=== PATIENT | female | born 1950 | race African-American/Black ===

== ENCOUNTER 2018-06-26 09:41 | Day surgery (SDC) | payer OTHER ==
[2018-06-20 14:58] VITALS: BMI 28.6
[2018-06-26 10:30] VITALS: TEMP 98.2
[2018-06-26] MEDS ORDERED: PROPOFOL 20 ML ONE ×2 (11:18)
[2018-06-26] MEDS ORDERED: LIDOCAINE HCL/PF 2% SDV 5ML VIAL ONE (11:18)
[2018-06-26 12:27] VITALS: BP 115/62; PULSE 66
--- NOTE | 2018-06-28 12:45 | PATH ---
Surgical Pathology Report Patient Name: LUZ GRIFFIN [facility]. Rec. #: [id number] /Age/Gender: 1950 (Age: 68) / F Account: [id number] Location: [facility] Taken: 06/26/2018 Received: 06/26/2018 Reported: 06/28/2018 Physicians: Sruthi Horn M.D. Specimen(s) Received A: BX SCOND PORTION DUODENUM B: BX GASTRIC ANTRUM C: BX GE JUNCTION Clinical History Abdominal pain Postoperative diagnosis: Gastritis Final Diagnosis A. DUODENUM, SECOND PORTION, BIOPSY: DUODENAL MUCOSA WITH NO PATHOLOGIC CHANGES. NO HISTOLOGIC EVIDENCE OF GLUTEN SENSITIVE ENTEROPATHY (CELIAC SPRUE) IDENTIFIED. B. STOMACH, ANTRUM, BIOPSY: GASTRIC ANTRAL MUCOSA WITH NO PATHOLOGIC CHANGES. IMMUNOSTAIN FOR H. PYLORI IS NEGATIVE. C. GE JUNCTION, BIOPSY: SQUAMOUS AND GLANDULAR MUCOSA WITH CHRONIC INFLAMMATION. NO INTESTINAL METAPLASIA IDENTIFIED (NO ELKINS'S IDENTIFIED). Electronically Signed Nikko Woodard M.D. Gross Description A. Received in formalin, labeled "biopsy second portion of duodenum" is a gudino, irregular portion of soft tissue measuring 0.3 cm. in greatest dimension. The specimen is submitted in toto in one cassette. B. Received in formalin, labeled "biopsy gastric antrum" is a gudino, irregular portion of soft tissue measuring 0.4 cm. in greatest dimension. The specimen is submitted in toto in one cassette. C. Received in formalin, labeled "biopsy GE junction" is a gudino, irregular portion of soft tissue measuring 0.4 cm. in greatest dimension. The specimen is submitted in toto in one cassette. 06/27/2018 [facility]06/27/2018
== END 2018-06-26 12:30 | disposition home or self-care (01) ==
LOC: FASU-ENDO 09:41
PROVIDERS: ATTEND Internal Medicine Gastroenterology
PROC: 0DB68ZX Excision of Stomach, Via Natural or Artificial Opening Endoscopic, Diagnostic (ICD-10-PCS; 2018-06-26)
PROC: 0DB98ZX Excision of Duodenum, Via Natural or Artificial Opening Endoscopic, Diagnostic (ICD-10-PCS; principal; 2018-06-26 11:37)
DX: K92.1 Melena (principal); K31.89 Other diseases of stomach and duodenum
CPT/HCPCS: 88305-TC; 88342-TC

== ENCOUNTER 2019-11-24 12:14 | Observation (INO) | payer OTHER ==
[2019-11-24 12:20] VITALS: BMI 31.8
--- NOTE | 2019-11-24 12:22 | PDOC ---
Rapid Medical Evaluation Time Seen by Provider: 11/24/19 12:16 Medical Evaluation: Allergies Allergy/AdvReac Type Severity Reaction Status Date / Time No Known Drug Allergies Allergy Verified 11/24/19 12:16 11/24/19 12:17 Pt presents for L arm numbness and palpitations for this weekend. She states the problem has been going on for over a month but was worse this weekend. Called Dr. Briones and was told to come to the ER for evaluation. Admits to shortness of breath. Denies chest pain. Exam: RRR, S1S2 Present, No respiratory distress, breathing comfortably ORA Orders: labs, EKG, CXR Pt to proceed to the ER for further evaluation Discharge Disposition - Diagnosis Palpitations - Referrals - Patient Instructions - Post Discharge Activity
--- NOTE | 2019-11-24 13:42 | PDOC ---
History of Present Illness - General Chief Complaint: Palpitations Stated Complaint: LT ARM NUMBNESS Time Seen by Provider: 11/24/19 12:16 History Source: Patient Exam Limitations: No Limitations - History of Present Illness Initial Comments: 69F with hx/o HTN, hypothyroidism, and hysterectomy presents to the ED with intermittent left sided numbness and weakness. This has been present since April of this year. Her sister had a stroke last year and she came into the ED because she was concerned of having a stroke herself. She denied headaches, syncope, chest pain, or slurred speech. Reports SOB with exertion, palpitations, and lightheadedness. HPI PMH: as in HPI SH: hysterectomy Meds: Allergies: NKDA Tob/Etoh/Rec drugs: negative x3 PCP: Dr. Anali OCONNOR GENERAL/CONSTITUTIONAL: No fever or chills. No weakness. HEENT: No change in vision. No ear pain or discharge. No sore throat. CARDIOVASCULAR: No chest pain, +shortness of breath RESPIRATORY: No cough, wheezing, or hemoptysis. GASTROINTESTINAL: No nausea, vomiting, diarrhea or constipation. GENITOURINARY: No dysuria, frequency, or change in urination. MUSCULOSKELETAL: No joint or muscle swelling or pain. No neck or back pain. SKIN: No rash NEUROLOGIC: No headache, vertigo, loss of consciousness, +change in strength/sensation. ENDOCRINE: No increased thirst. No abnormal weight change HEMATOLOGIC/LYMPHATIC: No anemia, easy bleeding, or history of blood clots. ALLERGIC/IMMUNOLOGIC: No hives or skin allergy. PE GENERAL: Awake, alert, and fully oriented, in no acute distress HEAD: No signs of trauma, normocephalic, atraumatic EYES: PERRLA, EOMI, sclera anicteric, conjunctiva clear ENT: Auricles normal inspection, hearing grossly normal, nares patent, oropharynx clear without exudates. Moist mucosa NECK: Normal ROM, supple, no lymphadenopathy, JVD, or masses HEART: Regular rate and rhythm, normal S1 and S2, no murmurs, rubs or gallops, peripheral pulses normal and equal bilaterally. LUNGS: No distress, speaks full sentences, clear to auscultation bilaterally ABDOMEN: Soft, nontender, normoactive bowel sounds. No guarding, no rebound. No masses EXTREMITIES: Normal inspection, Normal range of motion. +1 pitting edema. No clubbing or cyanosis. NEUROLOGICAL: CNII-XII grossly intact. Normal speech, normal gait, no focal sensorimotor deficits SKIN: Warm, Dry, normal turgor, no rashes or lesions noted Assessment and Plan 1. R/o ACS 2. R/o stroke 3. TIA Desmond Garcia, PGY1 Emergency Medicine 11/24/19 17:23 Past History - Medical History Allergies/Adverse Reactions: Allergies Allergy/AdvReac Type Severity Reaction Status Date / Time No Known Drug Allergies Allergy Verified 11/24/19 12:16 Home Medications: Ambulatory Orders Levothyroxine [Synthroid -] 150 mcg PO DAILY 02/12/12 Losartan Potassium [Cozaar] 100 mg PO DAILY 06/20/18 Mirabegron [Myrbetriq] 25 mg PO HS 06/20/18 Simvastatin [Zocor -] 40 mg PO DAILY 06/20/18 Zolpidem Tartrate [Ambien] 5 mg PO HS PRN 06/20/18 Anemia: No Asthma: No Cancer: No Cardiac Disorders: No CVA: No COPD: No CHF: No Dementia: No Diabetes: No GI Disorders: No Disorders: No HTN: Yes Hypercholesterolemia: Yes Liver Disease: No Seizures: No Thyroid Disease: Yes (HYPO) - Surgical History Abdominal Surgery: No Appendectomy: No Cardiac Surgery: No Cholecystectomy: No Lung Surgery: No Neurologic Surgery: No Orthopedic Surgery: Yes (R RTC REPAIR) - Immunization History Immunization Up to Date: Yes - Psycho-Social/Smoking History Smoking Status: No Smoking History: Never smoked Have you smoked in the past 12 months: No Number of Cigarettes Smoked Daily: 0 - Substance Abuse Hx (Audit-C & DAST Scrn) How often the patient has a drink containing alcohol: Never Score: In Men: 4 or > Positive; In Women: 3 or > Positive: 0 Screen Result (Pos requires Nsg. Audit-10AR): Negative In the last yr the pt used illegal drug/Rx for NonMed reason: No Score: Yes response is considered Positive: 0 Screen Result (Positive result requires Nsg. DAST-10): Negative *Physical Exam - Vital Signs Last Vital Signs Temp Pulse Resp BP Pulse Ox 98.4 F 84 20 139/87 99 11/24/19 12:17 11/24/19 12:17 11/24/19 12:17 11/24/19 12:17 11/24/19 12:17 Heart Score/ECG Review - History History: Moderately suspicious - Electrocardiogram EKG: Non specific repolarization disturbance - Age Age: >/= 65 - Risk Factors Risk Factors Heart Score: Yes Hx Hypercholesterolemia, Yes Hx Hypertension, Yes Hx Obesity Based on the list above the patient has:: >/=3 risk factors or Hx atherosclerotic disease - Troponin Troponin: </= normal limit - Score Heart Score - Total: 6 - ECG Intrepretation Rhythm: Regular Rhythm - Annawan Annawan: Normal - P and [place] Prominent R with upright T in V1 (true posterior TX): No Delta Wave(s) Present: No WPW: No - QRS Poor R Wave Progression: No Q Wave Present: Yes - ST and T Early Repolarization: No Non Specific ST-T Wave changes: Yes Flattened T Waves: Yes Prolonged Q-T Interval: No - ECG Impressions Normal ECG: No Non-specific ST Elevation: Yes Acute Myocardial Infarction: Anterior Bradycardia: No Tachycardia: Sinus Torsades sathya Pointes: No WPW: No ED Treatment Course - LABORATORY CBC & Chemistry Diagram: 11/24/19 14:00 11/24/19 14:00 Medical Decision Making - Medical Decision Making 69F with hx/o HTN, hypothyroidism, HLD, obesity, and hysterectomy presents to the ED with intermittent left sided numbness and weakness since April. She Reports SOB with exertion, palpitations, and lightheadedness. On exam, she had LE pitting edema bilaterally. Neuro exam intact. Differential includes but not limited to ACS, CHF, CVA/TIA. CT head noncontrast to r/o CVA. CT was negative. CBC, CMP, and TSH within normal limits. Troponin negative. EKG demonstrates T wave inversion in V1 and V2, and flattened T wave in V3. CXR negative. Heart Score 6. Patient will be admitted to tele observation for further workup. Discharge - Discharge Information Problems reviewed: Yes Clinical Impression/Diagnosis: Palpitations, Abnormal EKG Condition: Stable - Admission Yes - Follow up/Referral Referrals: David Cornelius MD [Primary Care Provider] - - Patient Discharge Instructions - Post Discharge Activity
[2019-11-24 14:37] LABS: BASO % 1.4 % (0-2.0); EOS % 0.7 % (0-4.5); HEMATOCRIT 37.4 % (32.4-45.2); HEMOGLOBIN 12.4 GM/dL (10.7-15.3); LYMPH % 36.8 % (8-40); MCH 29.9 pg (25.7-33.7); MCHC 33.2 g/dl (32.0-36.0); MEAN CELL VOLUME 89.9 fl (80-96); MEAN PLT VOLUME 8.3 fl (7.5-11.1); MONO % 7.8 % (3.8-10.2); NEUT % 53.3 % (42.8-82.8); PLATELET COUNT 202 K/MM3 (134-434); RBC 4.16 M/mm3 (3.60-5.2); RDW 13.7 % (11.6-15.6); WHITE BLOOD COUNT 3.3 K/mm3 (4.0-10.0)
[2019-11-24 14:45] LABS: INR 0.95 (0.83-1.09); PROTHROMBIN TIME (PATIENT) 11.2 SEC (9.7-13.0)
[2019-11-24 15:02] LABS: ALBUMIN 3.8 g/dl (3.4-5.0); ALK PHOS 79 U/L (45-117); ANION GAP 7 MMOL/L (8-16); BILIRUBIN,TOTAL 0.3 mg/dL (0.2-1); BLOOD UREA NITROGEN 17.1 mg/dL (7-18); CALCIUM 9.5 mg/dL (8.5-10.1); CHLORIDE 107 mmol/L (98-107); CO2 26 mmol/L (21-32); GLUCOSE,RANDOM 84 mg/dL (74-106); MAGNESIUM 2.5 mg/dL (1.8-2.4); POTASSIUM 4.5 mmol/L (3.5-5.1); SGOT/AST 24 U/L (15-37); SGPT/ALT 36 U/L (13-61); SODIUM 141 mmol/L (136-145); TOT PROT 8.2 g/dl (6.4-8.2)
--- NOTE | 2019-11-24 15:05 | PDOC ---
Documentation entered by Ines Kelly SCRIBE, acting as scribe for Sim Berkowitz MD. Sim Berkowitz MD: This documentation has been prepared by the Robin orellana Ana, SCRIBE, under my direction and personally reviewed by me in its entirety. I confirm that the documentation accurately reflects all work, treatment, procedures, and medical decision making performed by me. Attending Attestation - Resident Resident Name: Desmond Garcia - ED Attending Attestation I have performed the following: I have examined & evaluated the patient, The case was reviewed & discussed with the resident, I agree w/resident's findings & plan, Exceptions are as noted - HPI HPI: 11/24/19 13:57 Patient is a 69 year old female with a significant past medical history of hypertension, hypothyroidism, and hysterectomy, who presents to the ED with numbness and weakness on the left side of her body x8 months (April 2019). Patient stated she has been feeling these symptoms on and off. Patient disclosed that she is concerned about having a stroke because her sister had one last year which prompted her ED arrival. Pt also complains of palpitations and occasional SOB. States that she gets SOB when talking and walking. Patient endorses: lightheadedness, SOB upon exertion, and palpitations. Patient denies: syncope, headaches, slurred speech, chest pain, or any other related symptoms. Allergies: NKDA - Physicial Exam PE: 11/24/19 13:58 See resident exam. - Medical Decision Making 11/24/19 15:15 69 F with L sided numbness/weakness, now resolved. Also palpitations with SOB and OSORIO. EKG without evidence of arrhythmia but new TWI in V2-V3 since 2016. Pt denies CP. Pt with mild pitting edema in BLE, suspicious for volume overload. - Labs, trop - CXR Discharge - Discharge Information Problems reviewed: Yes Clinical Impression/Diagnosis: Palpitations, Abnormal EKG, Volume overload Condition: Stable Disposition: HOME - Follow up/Referral - Patient Discharge Instructions - Post Discharge Activity
--- NOTE | 2019-11-24 16:08 | EKG ---
Test Reason : Blood Pressure : / mmHG Vent. Rate : 078 BPM Atrial Rate : 078 BPM P-R Int : 176 ms QRS Dur : 090 ms QT Int : 360 ms P-R-T Axes : 006 021 002 degrees QTc Int : 410 ms NORMAL SINUS RHYTHM NONSPECIFIC ST AND T WAVE ABNORMALITY ABNORMAL ECG WHEN COMPARED WITH ECG OF 26-APR-2015 16:00, T WAVE VARIATION Confirmed by DOMINIQUE CAVANAUGH MD ([id number]) on 11/24/2019 4:07:40 PM Referred By: Confirmed By:DOMINIQUE CAVANAUGH MD
--- NOTE | 2019-11-24 20:46 | PN ---
Teaching Attending Note ATTENDING PHYSICIAN STATEMENT I saw and evaluated the patient. I reviewed the resident's note and discussed the case with the resident. I agree with the resident's findings and plan as documented. SUBJECTIVE: 69 years old F with PMH of HTN, hypothyroidism presented to hospital with intermittent palpitations, chest discomfort and shortness of breath. She c She also c/o left arm and leg weakness and numbness which is comes and goes for many months. She called her PMD who recommended to come to the hospital. She denies chest pain, nausea,vomiting, fever, urinary complaints, diarrhea, constipation OBJECTIVE: Last Vital Signs Temp Pulse Resp BP Pulse Ox 98.4 F 79 18 98/58 L 99 11/24/19 12:17 11/24/19 18:27 11/24/19 18:27 11/24/19 18:27 11/24/19 12:17 GENERAL: ] in acutye distress HEAD: No signs of trauma, normocephalic, atraumatic EYES: PERRLA, EOMI, sclera anicteric, conjunctiva clear ENT: Auricles normal inspection, hearing grossly normal, nares patent, oropharynx clear without exudates. Moist mucosa NECK: Normal ROM, supple, no lymphadenopathy, JVD, or masses HEART: Regular rate and rhythm, normal S1 and S2, no murmurs, rubs or gallops, peripheral pulses normal and equal bilaterally. LUNGS: No distress, speaks full sentences, clear to auscultation bilaterally ABDOMEN: Soft, nontender, normoactive bowel sounds. No guarding, no rebound. No masses EXTREMITIES: Normal inspection, Normal range of motion, [peripheral pulses palpable, B/L pitting edema 1+ NEUROLOGICAL: CNII-XII grossly intact. Normal speech, normal gait, no focal sensorimotor deficits SKIN: Warm, Dry, normal turgor, no rashes or lesions noted ASSESSMENT AND PLAN: Exertional SOb, palpitations r/o CHF R/o ACS HTn controlled mild rhabdomyolysis Observation to tele tele monitoring check B12, TSH, mg,phos, cpk, Hba1c, lipid panel, BNP, troponin ECHO HTN- hold home meds as BP lower side left sided intermittent numbness/weakness due to ? nutritional deficiency ? Thyroid, no focal weakness or numbness on physical exam resume home dose syntroid DVT ppx
[2019-11-25 02:18] LABS: N-TERMINAL BNP 28.1 pg/ml (5-125)
[2019-11-25] MEDS ORDERED: SODIUM CHLORIDE 1,000 ML IV SCH (03:45)
--- NOTE | 2019-11-25 04:30 | HP ---
CHIEF COMPLAINT: Shortness of breath on exertion with palpitations, lightheadedness on standing, and leg swelling left greater than right. PCP: Dr. Briones HISTORY OF PRESENT ILLNESS: 69 year old female patient with past medical history that includes HTN, Hypothyroidism, HLD, Obesity who presented to the ED with shortness of breath on exertion with intermittent palpitations for over a month, lightheadedness on standing, and leg swelling with the left leg bigger than the right per the patient. The patient reports that she can now only walk maybe a block and a half before she has to stop and rest. She sleeps with her head propped up, but does not specify a number of pillows. For her leg swelling, her primary care physician prescribed for her a water pill, which has helped. She also has intermittent numbness and weakness in her left arm and leg that come and go but happen at least once daily. ER course was notable for: (1) ECG (2) NS 1 L (3) Recent Travel: Was in [place] PAST MEDICAL HISTORY: HTN, Hypothyroidism, HLD, Obesity PAST SURGICAL HISTORY: Hyterectomy Social History: Smoking: denies Alcohol: 1 glass of wine per day Drugs: denies Allergies No Known Drug Allergies Allergy (Verified 11/24/19 12:16) HOME MEDICATIONS: Home Medications Medication Instructions Recorded Levothyroxine [Synthroid -] 150 mcg PO DAILY 02/12/12 Losartan Potassium [Cozaar] 100 mg PO DAILY 06/20/18 Mirabegron [Myrbetriq] 25 mg PO HS 06/20/18 Simvastatin [Zocor -] 40 mg PO DAILY 06/20/18 Zolpidem Tartrate [Ambien] 5 mg PO HS PRN 06/20/18 REVIEW OF SYSTEMS CONSTITUTIONAL: Absent: fever, chills, CARDIOVASCULAR: lightheadedness on standing, palpitations, peripheral edema Absent: chest pain, syncope, irregular heart rate, RESPIRATORY: shortness of breath on exertion Absent: GASTROINTESTINAL: diarrhea, constipation Absent: GENITOURINARY: Absent: dysuria NEUROLOGIC: Absent: headache, slurred speech PHYSICAL EXAMINATION Vital Signs - 24 hr 11/24/19 11/24/19 11/24/19 12:17 18:27 20:51 Temperature 98.4 F 97.9 F Pulse Rate 84 Pulse Rate [ 79 72 Apical] Respiratory 20 18 19 Rate Blood Pressure 139/87 Blood Pressure 98/58 L 131/89 [Right Arm] O2 Sat by Pulse 99 99 Oximetry (%) 11/24/19 11/25/19 22:00 02:00 Temperature 98 F 98.3 F Pulse Rate 71 74 Pulse Rate [ Apical] Respiratory 19 19 Rate Blood Pressure 153/95 155/93 Blood Pressure [Right Arm] O2 Sat by Pulse 97 99 Oximetry (%) GENERAL: Awake, alert, and fully oriented, in no acute distress. HEAD: Normal with no signs of trauma. EYES: Pupils equal, round and reactive to light, extraocular movements intact. No lid lag. EARS, NOSE, THROAT: Ears normal, nares patent, oropharynx clear without exudates. Moist mucous membranes. NECK: Normal range of motion, supple without lymphadenopathy, or masses. Mild JVD. LUNGS: Decreased breath sounds with mild crackles in bases. No accessory muscle use. HEART: Regular rate and rhythm, normal S1 and S2 without murmur, rub or gallop. ABDOMEN: Soft, nontender, not distended, normoactive bowel sounds, no guarding, no rebound, no masses. MUSCULOSKELETAL: Normal range of motion at all joints. No bony deformities or tenderness. UPPER EXTREMITIES: 2+ pulses, warm, well-perfused. No cyanosis. No clubbing. No peripheral edema. LOWER EXTREMITIES: 2+ pulses, warm, well-perfused. No calf tenderness. Bilateral leg swelling with right leg equal in size to left leg. NEUROLOGICAL: Cranial nerves II-XII intact. Normal speech. Normal gait. Muscle strength 5/5 bilaterally upper and lower extremities. No numbness in all dermatomes in upper and lower extremities bilaterally. PSYCHIATRIC: Cooperative. Good eye contact. Appropriate mood and affect. SKIN: Warm, dry, normal turgor, no rashes or lesions noted, normal capillary refill. Laboratory Results - last 24 hr 11/24/19 11/24/19 11/24/19 14:00 14:00 14:00 WBC 3.3 L RBC 4.16 Hgb 12.4 Hct 37.4 D MCV 89.9 MCH 29.9 MCHC 33.2 RDW 13.7 Plt Count 202 D MPV 8.3 Absolute Neuts (auto) 1.8 Neutrophils % 53.3 D Lymphocytes % 36.8 D Monocytes % 7.8 Eosinophils % 0.7 D Basophils % 1.4 Nucleated RBC % 0 PT with INR 11.20 INR 0.95 Sodium 141 Potassium 4.5 Chloride 107 Carbon Dioxide 26 Anion Gap 7 L BUN 17.1 Creatinine 1.0 Est GFR (CKD-EPI)AfAm 67.04 Est GFR (CKD-EPI)NonAf 57.84 Random Glucose 84 Calcium 9.5 Magnesium 2.5 H Total Bilirubin 0.3 AST 24 ALT 36 Alkaline Phosphatase 79 Creatine Kinase 618 H Creatine Kinase Index 1.1 CK-MB (CK-2) 6.8 H Troponin I < 0.02 B-Natriuretic Peptide Total Protein 8.2 Albumin 3.8 Vitamin B12 TSH 11/24/19 11/25/19 14:00 00:05 WBC RBC Hgb Hct MCV MCH MCHC RDW Plt Count MPV Absolute Neuts (auto) Neutrophils % Lymphocytes % Monocytes % Eosinophils % Basophils % Nucleated RBC % PT with INR INR Sodium Potassium Chloride Carbon Dioxide Anion Gap BUN Creatinine Est GFR (CKD-EPI)AfAm Est GFR (CKD-EPI)NonAf Random Glucose Calcium Magnesium Total Bilirubin AST ALT Alkaline Phosphatase Creatine Kinase Creatine Kinase Index CK-MB (CK-2) Troponin I < 0.02 B-Natriuretic Peptide 28.1 Total Protein Albumin Vitamin B12 624 TSH 2.38 ASSESSMENT/PLAN: 69 year old female patient with past medical history that includes HTN, Hypothyroidism, HLD, Obesity who presented to the ED with shortness of breath on exertion with intermittent palpitations for over a month, lightheadedness on standing, and leg swelling with the left leg bigger than the right per the patient. 1. possible new onset CHF exacerbation - leg swelling - shortness of breath on exertion - ECHO - B12, TSH, mg, phos, cpk, Hba1c, lipid panel, BNP, troponin 2. HTN - holding HTN meds as blood pressure is low 3. Hypothyroidism - Levothyroxine # FEN - NS at 83, Monitoring Electrolytes, NPO DVT PPx - Lovenox SQ Family Medical History Family History: Denies Visit type - Medication Review Med list reviewed for High Risk Meds patients 65 and older: Yes - Emergency Visit Emergency Visit: Yes ED Registration Date: 11/24/19 Care time: The patient presented to the Emergency Department on the above date and was hospitalized for further evaluation of their emergent condition. - New Patient This patient is new to me today: Yes Date on this admission: 11/25/19 - Critical Care Critical Care patient: No ATTENDING PHYSICIAN STATEMENT I saw and evaluated the patient. I reviewed the resident's note and discussed the case with the resident. I agree with the resident's findings and plan as documented. SUBJECTIVE: OBJECTIVE: ASSESSMENT AND PLAN:
[2019-11-25 06:45] LABS: HEMATOCRIT 36.9 % (32.4-45.2); HEMOGLOBIN 12.2 GM/dL (10.7-15.3); MCH 29.4 pg (25.7-33.7); MCHC 32.9 g/dl (32.0-36.0); MEAN CELL VOLUME 89.3 fl (80-96); MEAN PLT VOLUME 8.2 fl (7.5-11.1); PLATELET COUNT 195 K/MM3 (134-434); RBC 4.14 M/mm3 (3.60-5.2); RDW 13.9 % (11.6-15.6); WHITE BLOOD COUNT 3.4 K/mm3 (4.0-10.0)
[2019-11-25] MEDS ORDERED: LEVOTHYROXINE NA 50 MCG TABLET (FP) PO SCH (07:00)
[2019-11-25 07:40] LABS: BLOOD UREA NITROGEN 13.4 mg/dL (7-18); CALCIUM 8.8 mg/dL (8.5-10.1); CREATININE 0.8 mg/dL (0.55-1.3); MAGNESIUM 2.2 mg/dL (1.8-2.4); PHOSPHOROUS 3.6 mg/dL (2.5-4.9); POTASSIUM 4.1 mmol/L (3.5-5.1)
[2019-11-25] MEDS ORDERED: PATIENT'S OWN MEDICATION (NON-FORMULARY) (Losartan Potassium [Cozaar] 100 MG) PO SCH (10:00)
[2019-11-25] MEDS ORDERED: LEVOTHYROXINE PO SCH (10:00)
[2019-11-25] MEDS ORDERED: ENOXAPARIN NA (PORCINE) 40 MG/0.4 ML DISP.SYRIN SQ SCH (10:00)
[2019-11-25] MEDS ORDERED: LOSARTAN POTASSIUM 50 MG TABLET (FP) PO SCH (10:00)
--- NOTE | 2019-11-25 14:30 | PN ---
Physical Exam: SUBJECTIVE: Patient seen and examined at bedside. Patient reports improvement of shortness of breath. Patient has no other concerns or complaints at this time. OBJECTIVE: Vital Signs Period Temp Pulse Resp BP Sys/Coulter Pulse Ox Last 24 Hr 97.8 F-98.6 F 66-81 15-24 98-161/58-95 96-99 GENERAL: AAOx3, in no acute distress HEENT: NCAT, PERRLA, EOMI, sclera anicteric, conjunctiva clear, oropharynx clear w/o exudates. MMM. NECK: Normal ROM, supple, no lymphadenopathy, JVD, or masses LUNGS: CTABL no wheezes/ rhonchi/ rales. No distress, speaks in full sentences. No increased work of breathing. HEART: RRR, normal S1 S2, no M/R/G, peripheral pulses 2+ and equal b/l ABDOMEN: Soft, NTND, + BS. No guarding or rebound. No hepatomegaly or splenomegaly. MSK: ROM WNL EXTREMITIES: Normal inspection. No peripheral edema. No clubbing or cyanosis. NEUROLOGICAL: CN II-XII intact. Normal speech, normal gait, no focal sensorimotor deficits. NIH Stroke Scale: 0 SKIN: Warm, Dry, normal turgor, no rashes or lesions noted Laboratory Results - last 24 hr 11/24/19 11/24/19 11/24/19 14:00 14:00 14:00 WBC 3.3 L RBC 4.16 Hgb 12.4 Hct 37.4 D MCV 89.9 MCH 29.9 MCHC 33.2 RDW 13.7 Plt Count 202 D MPV 8.3 Absolute Neuts (auto) 1.8 Neutrophils % 53.3 D Lymphocytes % 36.8 D Monocytes % 7.8 Eosinophils % 0.7 D Basophils % 1.4 Nucleated RBC % 0 PT with INR 11.20 INR 0.95 Sodium 141 Potassium 4.5 Chloride 107 Carbon Dioxide 26 Anion Gap 7 L BUN 17.1 Creatinine 1.0 Est GFR (CKD-EPI)AfAm 67.04 Est GFR (CKD-EPI)NonAf 57.84 Random Glucose 84 Calcium 9.5 Phosphorus Magnesium 2.5 H Total Bilirubin 0.3 AST 24 ALT 36 Alkaline Phosphatase 79 Creatine Kinase 618 H Creatine Kinase Index 1.1 CK-MB (CK-2) 6.8 H Troponin I < 0.02 B-Natriuretic Peptide Total Protein 8.2 Albumin 3.8 Vitamin B12 TSH COVID-19 (SERINA) 11/24/19 11/24/19 11/25/19 14:00 14:20 00:05 WBC RBC Hgb Hct MCV MCH MCHC RDW Plt Count MPV Absolute Neuts (auto) Neutrophils % Lymphocytes % Monocytes % Eosinophils % Basophils % Nucleated RBC % PT with INR INR Sodium Potassium Chloride Carbon Dioxide Anion Gap BUN Creatinine Est GFR (CKD-EPI)AfAm Est GFR (CKD-EPI)NonAf Random Glucose Calcium Phosphorus Magnesium Total Bilirubin AST ALT Alkaline Phosphatase Creatine Kinase Creatine Kinase Index CK-MB (CK-2) Troponin I < 0.02 B-Natriuretic Peptide 28.1 Total Protein Albumin Vitamin B12 624 TSH 2.38 COVID-19 (SERINA) Not detected 11/25/19 11/25/19 11/25/19 05:30 05:30 06:00 WBC 3.4 L RBC 4.14 Hgb 12.2 Hct 36.9 MCV 89.3 MCH 29.4 MCHC 32.9 RDW 13.9 Plt Count 195 MPV 8.2 Absolute Neuts (auto) Neutrophils % Lymphocytes % Monocytes % Eosinophils % Basophils % Nucleated RBC % PT with INR INR Sodium 140 Potassium 4.1 Chloride 106 Carbon Dioxide 26 Anion Gap 8 BUN 13.4 Creatinine 0.8 Est GFR (CKD-EPI)AfAm 87.80 Est GFR (CKD-EPI)NonAf 75.75 Random Glucose 76 Calcium 8.8 Phosphorus 3.6 Magnesium 2.2 Total Bilirubin AST ALT Alkaline Phosphatase Creatine Kinase Creatine Kinase Index CK-MB (CK-2) Troponin I < 0.02 B-Natriuretic Peptide Total Protein Albumin Vitamin B12 TSH COVID-19 (SERINA) Active Medications Generic Name Dose Route Start Last Admin Trade Name Freq PRN Reason Stop Dose Admin Enoxaparin Sodium 40 mg 11/25/19 10:00 11/25/19 09:39 Lovenox - SQ 40 mg DAILY DREA Administration Sodium Chloride 1,000 mls @ 83 mls/hr 11/25/19 03:45 11/25/19 04:30 Normal Saline - IV 83 mls/hr ASDIR DREA Administration Levothyroxine Sodium 150 mcg 11/25/19 07:00 11/25/19 06:27 Synthroid - PO 150 mcg DAILY@0700 DREA Administration Losartan Potassium 100 mg 11/25/19 10:00 11/25/19 09:39 Cozaar - PO 100 mg DAILY DREA Administration Non-Formulary Medication 25 mg 11/25/19 22:00 Mirabegron [Myrbetriq] PO HS DREA Non-Formulary Medication 40 mg 11/26/19 10:00 Simvastatin PO DAILY DREA ASSESSMENT/PLAN: 69 year old female patient with past medical history that includes HTN, Hypothyroidism, HLD, Obesity who presented to the ED with shortness of breath on exertion with intermittent palpitations for over a month, lightheadedness on st anding. #possible new onset CHF exacerbation - ECHO done today: normal valve and ventricle function with an EF= 60% - B12, TSH, mg, phos, cpk, Hba1c, lipid panel, BNP, troponin - repeat EKG - referred to Dr. Garcia, Ms Access Database Developer, for patient to follow up with outpt. #HTN - continuing home meds as long as BP does not get too low #Hypothyroidism - Levothyroxine #FEN -Monitoring Electrolytes -NPO #DVT PPx - Lovenox SQ Visit type - Emergency Visit Emergency Visit: No - New Patient This patient is new to me today: Yes Date on this admission: 11/25/19 - Critical Care Critical Care patient: No - Discharge Referral Referred to [facility] Med P.C.: No - Medication Review Med list reviewed for High Risk Meds patients 65 and older: Yes ATTENDING PHYSICIAN STATEMENT I saw and evaluated the patient. I reviewed the resident's note and discussed the case with the resident. I agree with the resident's findings and plan as documented. SUBJECTIVE: OBJECTIVE: ASSESSMENT AND PLAN:
--- NOTE | 2019-11-25 14:35 | ECHO ---
Version: 1 Name: LUZ GRIFFIN Exam: Adult Echocardiogram Study Date: 11/25/2019, 1:27 PM Age: 69 Years MMode/2D Measurements & Calculations IVSd: 1.09 cm LVIDs: 3.1 cm LVIDd: 4.5 cm LVPWd: 1.07 cm LAV (MOD-bp): 53.0 ml ACS: 1.84 cm Ao root diam: 3.2 cm LVOT diam: 1.98 cm LA dimension: 3.3 cm Doppler Measurements & Calculations MV E max jose: 46.9 cm/sec Med E/e': 10.5 MV A max jose: 90.3 cm/sec Med Peak E' Jose: 4.5 cm/sec MV E/A: 0.52 Lat E/e': 4.6 Lat Peak E' Jose: 10.2 cm/sec Ao max P.5 mmHg MARISSA(I,D): 2.7 cm Ao mean P.7 mmHg LV V1 mean: 62.3 cm/sec Ao V2 max: 116.7 cm/sec LV V1 mean P.76 mmHg PI end-d jose: 76.0 cm/sec TR max jose: 180.1 cm/sec TR max P.1 mmHg Left Ventricle The left ventricular size, thickness and function are normal. EF 60%. Abnormal diastolic relaxation. Right Ventricle The right ventricle is normal in size and function. Atria Normal left and right atrial size and function. Mitral Valve The mitral valve is normal in structure and function. Tricuspid Valve The tricuspid valve is normal in structure and function. Trace TR, PASP 23 mmHg. Aortic Valve The aortic valve is normal in structure and function. Pulmonic Valve The pulmonic valve is normal in structure and function. Great Vessels The aortic root is normal size. Pericardium/Pleura There is no pericardial effusion. Tech Comments TDS due to body habitus. Summary Statements The left ventricular size, thickness and function are normal EF 60% Abnormal diastolic relaxation The right ventricle is normal in size and function. Normal left and right atrial size and function. The mitral valve is normal in structure and function. The tricuspid valve is normal in structure and function. Trace TR, PASP 23 mmHg The aortic valve is normal in structure and function. MD Peña Suarez 11/25/2019, 2:34 PM Ordering Physician: Altaf Desir Referring Physician: ALTAF DESIR Performed By: Tamia Wetzel
--- NOTE | 2019-11-25 16:42 | PN ---
Teaching Attending Note Name of Resident: Sterling Owens ATTENDING PHYSICIAN STATEMENT I saw and evaluated the patient. I reviewed the resident's note and discussed the case with the resident. I agree with the resident's findings and plan as documented. SUBJECTIVE: Patient is comfortable has no new symptoms. Denies having any shortness of breat h, or tingling sensation of lower extremities. Patient stated that has a hx of lower back pain due to having an accident a long time ago due to her fall. OBJECTIVE: Vital Signs Temperature 98.5 F 11/25/19 14:00 Pulse Rate 70 11/25/19 14:00 Respiratory Rate 22 H 11/25/19 14:00 Blood Pressure 153/89 11/25/19 14:00 O2 Sat by Pulse Oximetry (%) 100 11/25/19 14:00 PE:per resident's note CVS: S1S2+, No murmur Abdomen: no abdominal tenderness Ext: P+, no C/C/E Neuro: AA0x3 , NFD CBCD WBC 3.4 K/mm3 (4.0-10.0) L 11/25/19 05:30 RBC 4.14 M/mm3 (3.60-5.2) 11/25/19 05:30 Hgb 12.2 GM/dL (10.7-15.3) 11/25/19 05:30 Hct 36.9 % (32.4-45.2) 11/25/19 05:30 MCV 89.3 fl (80-96) 11/25/19 05:30 MCHC 32.9 g/dl (32.0-36.0) 11/25/19 05:30 RDW 13.9 % (11.6-15.6) 11/25/19 05:30 Plt Count 195 K/MM3 (134-434) 11/25/19 05:30 MPV 8.2 fl (7.5-11.1) 11/25/19 05:30 CMP Sodium 140 mmol/L (136-145) 11/25/19 06:00 Potassium 4.1 mmol/L (3.5-5.1) 11/25/19 06:00 Chloride 106 mmol/L (98-107) 11/25/19 06:00 Carbon Dioxide 26 mmol/L (21-32) 11/25/19 06:00 Anion Gap 8 MMOL/L (8-16) 11/25/19 06:00 BUN 13.4 mg/dL (7-18) 11/25/19 06:00 Creatinine 0.8 mg/dL (0.55-1.3) 11/25/19 06:00 Random Glucose 76 mg/dL (74-106) 11/25/19 06:00 Calcium 8.8 mg/dL (8.5-10.1) 11/25/19 06:00 Total Bilirubin 0.3 mg/dL (0.2-1) 11/24/19 14:00 AST 24 U/L (15-37) 11/24/19 14:00 ALT 36 U/L (13-61) 11/24/19 14:00 Alkaline Phosphatase 79 U/L (45-117) 11/24/19 14:00 Total Protein 8.2 g/dl (6.4-8.2) 11/24/19 14:00 Albumin 3.8 g/dl (3.4-5.0) 11/24/19 14:00 CARDIAC ENZYMES Creatine Kinase 618 U/L (26-192) H 11/24/19 14:00 Troponin I < 0.02 ng/ml (0.00-0.05) 11/25/19 05:30 Laboratory Tests 11/24/19 11/24/19 11/24/19 14:00 14:00 14:20 Potassium Phosphorus Troponin I < 0.02 Vitamin B12 TSH 2.38 COVID-19 (SERINA) Not detected 11/25/19 11/25/19 11/25/19 00:05 05:30 06:00 Potassium 4.1 Phosphorus 3.6 Troponin I < 0.02 < 0.02 Vitamin B12 624 TSH COVID-19 (SERINA) Home Medications Medication Instructions Recorded Levothyroxine [Synthroid -] 112 mcg PO DAILY 02/12/12 Losartan Potassium [Cozaar] 100 mg PO DAILY 06/20/18 Mirabegron [Myrbetriq] 25 mg PO HS 06/20/18 Simvastatin [Zocor -] 40 mg PO DAILY 06/20/18 Zolpidem Tartrate [Ambien] 5 mg PO HS PRN 06/20/18 Aspirin Coated [Ecotrin -] 81 mg PO DAILY #30 tab 11/25/19 Metoprolol Succinate [Toprol XL -] 25 mg PO DAILY #30 tab 11/25/19 Current Medications Generic Name Dose Route Start Last Admin Trade Name Nan PRN Reason Stop Dose Admin Aspirin 81 mg 11/25/19 17:00 11/25/19 17:20 Ecotrin - PO 81 mg DAILY DREA Administration Atorvastatin Calcium 20 mg 11/25/19 22:00 Lipitor - PO HS DREA Enoxaparin Sodium 40 mg 11/25/19 10:00 11/25/19 09:39 Lovenox - SQ 40 mg DAILY DREA Administration Sodium Chloride 1,000 mls @ 83 mls/hr 11/25/19 03:45 11/25/19 04:30 Normal Saline - IV 83 mls/hr ASDIR DREA Administration Levothyroxine Sodium 150 mcg 11/25/19 07:00 11/25/19 06:27 Synthroid - PO 150 mcg DAILY@0700 DREA Administration Losartan Potassium 100 mg 11/25/19 10:00 11/25/19 09:39 Cozaar - PO 100 mg DAILY DREA Administration Metoprolol Succinate 25 mg 11/25/19 18:00 Toprol Xl - PO DAILY DREA Non-Formulary Medication 25 mg 11/25/19 22:00 Mirabegron [Myrbetriq] PO HS DREA CXR: no acute pathology , large heart, prominent Knob, scoliosis with degenerative changes.Unfolded Aorta Echo; EJF 60%, abnormal diastolic relaxation. ASSESSMENT AND PLAN: This patient is a 69yof with PMHx of HTN, Hypothyroidism, HLD, Obesity who presented to the ED c/o having SOB. #Acute SOB: Improved , echo was done: with abnormal diastolic relaxation , will follow up with dietetic aide as an outpatient, w/u is negative so far. #small chronic cerebellar infarct: will add aspirin, follow up with neuro as an outpatient with dr white # Hx of fall with back pain: follow up with ortho as an outpatient # HTN: Uncontrolled will add toprol xl 25mg po daily # Hypothyroidism: continue Levothyroxine dc patient home
[2019-11-25] MEDS ORDERED: ASPIRIN COATED 81 MG TABLET.EC PO SCH (17:00)
--- NOTE | 2019-11-25 17:28 | DS ---
Physical Exam: SUBJECTIVE: Patient seen and examined at bedside. Patient reports improvement of shortness of breath. Patient has no other concerns or complaints at this time. OBJECTIVE: Vital Signs Period Temp Pulse Resp BP Sys/Coulter Pulse Ox Last 24 Hr 97.8 F-98.6 F 66-81 15-24 98-161/58-95 96-100 PHYSICAL EXAM GENERAL: AAOx3, in no acute distress HEENT: NCAT, PERRLA, EOMI, sclera anicteric, conjunctiva clear, oropharynx clear w/o exudates. MMM. NECK: Normal ROM, supple, no lymphadenopathy, JVD, or masses LUNGS: CTABL no wheezes/ rhonchi/ rales. No distress, speaks in full sentences. No increased work of breathing. HEART: RRR, normal S1 S2, no M/R/G, peripheral pulses 2+ and equal b/l ABDOMEN: Soft, NTND, + BS. No guarding or rebound. No hepatomegaly or splenomegaly. MSK: ROM WNL EXTREMITIES: Normal inspection. No peripheral edema. No clubbing or cyanosis. NEUROLOGICAL: CN II-XII intact. Normal speech, normal gait, no focal sensorimotor deficits. NIH Stroke Scale: 0 SKIN: Warm, Dry, normal turgor, no rashes or lesions noted LABS Laboratory Results - last 24 hr 11/24/19 11/25/19 11/25/19 14:20 00:05 05:30 WBC 3.4 L RBC 4.14 Hgb 12.2 Hct 36.9 MCV 89.3 MCH 29.4 MCHC 32.9 RDW 13.9 Plt Count 195 MPV 8.2 Sodium Potassium Chloride Carbon Dioxide Anion Gap BUN Creatinine Est GFR (CKD-EPI)AfAm Est GFR (CKD-EPI)NonAf Random Glucose Calcium Phosphorus Magnesium Troponin I < 0.02 B-Natriuretic Peptide 28.1 Vitamin B12 624 COVID-19 (SERINA) Not detected 11/25/19 11/25/19 05:30 06:00 WBC RBC Hgb Hct MCV MCH MCHC RDW Plt Count MPV Sodium 140 Potassium 4.1 Chloride 106 Carbon Dioxide 26 Anion Gap 8 BUN 13.4 Creatinine 0.8 Est GFR (CKD-EPI)AfAm 87.80 Est GFR (CKD-EPI)NonAf 75.75 Random Glucose 76 Calcium 8.8 Phosphorus 3.6 Magnesium 2.2 Troponin I < 0.02 B-Natriuretic Peptide Vitamin B12 COVID-19 (SERINA) HOSPITAL COURSE: 69 year old female patient with past medical history that includes HTN, Hypothyroidism, HLD, Obesity who presented to the ED with shortness of breath on exertion with intermittent palpitations for over a month, lightheadedness on standing. During her stay at the hospital the patient was worked up for a possible new onset CHF exacerbation. Echo was done which revealed normal valve and ventricle function with an EF=60. EKG was done which also revealed normal results. Patient continued her home medications for hypertension and hypothyro idism during her stay at the hospital. Patient's symptoms resolved after being admitted and she was referred to Dr. Garcia for outpatient cardiology follow-up. Lovenox SQ was given during her stay as DVT prophylaxis. Date of Admission:11/24/19 11/24/2019- CXR- Impression: No acute chest pathology. Large heart. Prominent knob. No change of an adverse nature s erika 03/13/2012. 11/24/2019-CT Head w/o contrast- No CT evidence of acute intracranial pathology. 11/25/2019-Echocardiogram- normal valve and ventricle function with EF=60 Date of Discharge: 11/25/19 Minutes to complete discharge: 36 Discharge Summary Problems reviewed: Yes Reason For Visit: SOB,PALPITATIONS,ABNORMAL ELECTROCARDIOGRAPHY Current Active Problems Abnormal EKG (Acute) Palpitations (Acute) Condition: Stable - Instructions Diet, Activity, Other Instructions: Your visit: You were admitted to the hospital for shortness of breath. You were found to have a normal heart study. You were treated with fluids with improvement of your symptoms. Medications changes: -Continue to take all other home medications as prescribed. -Added Ecotrin 81mg orally daily (it's over the counter) -Added a new blood pressure medication : Toprol XL 12.5mg orally daily (1/2 a tablet) Follow up: - Please follow-up with clinical statistics manager, Dr. Garcia in 1 week. - Visit with your Primary Care Provider, Dr. Waite in 2 weeks. -follow up with neurologist within a week Dr Todd -follow up with Orthopedic dr for your lower back within a week Additional Instructions: -You are being discharged to your home. -Please return to the Emergency Department if you experience worsening pain, fevers, chills, shortness of breath, or chest pain, or if you experience any worsening, new or concerning symptoms. Referrals: David Cornelius MD [Primary Care Provider] - 1 Week Sim Lawrence MD [Staff Physician] - 1 Week Connor Garcia MD [Staff Physician] - 1 Week Epifanio Todd MD [Staff Physician] - 1 Week Disposition: HOME - Home Medications Comprehensive Discharge Medication List: Ambulatory Orders Levothyroxine [Synthroid -] 112 mcg PO DAILY 02/12/12 Losartan Potassium [Cozaar] 100 mg PO DAILY 06/20/18 Mirabegron [Myrbetriq] 25 mg PO HS 06/20/18 Simvastatin [Zocor -] 40 mg PO DAILY 06/20/18 Zolpidem Tartrate [Ambien] 5 mg PO HS PRN 06/20/18 Aspirin Coated [Ecotrin -] 81 mg PO DAILY #30 tab 11/25/19 This patient is new to me today: Yes Date on this admission: 11/25/19 Emergency Visit: No Critical Care patient: No - Discharge Referral Referred to [facility] Med P.C.: No ATTENDING PHYSICIAN STATEMENT I saw and evaluated the patient. I reviewed the resident's note and discussed the case with the resident. I agree with the resident's findings and plan as documented. SUBJECTIVE: OBJECTIVE: ASSESSMENT AND PLAN:
[2019-11-25 17:50] VITALS: BP 142/85; PULSE 62; TEMP 98.6
[2019-11-25] MEDS ORDERED: metoPROLOL SUCCINATE 25 MG TAB.SR.24H (FP) PO SCH (18:00)
--- NOTE | 2019-11-25 20:14 | EKG ---
Test Reason : Blood Pressure : / mmHG Vent. Rate : 067 BPM Atrial Rate : 067 BPM P-R Int : 186 ms QRS Dur : 090 ms QT Int : 404 ms P-R-T Axes : 025 021 017 degrees QTc Int : 426 ms NORMAL SINUS RHYTHM T WAVE ABNORMALITY, CONSIDER ANTERIOR ISCHEMIA ABNORMAL ECG WHEN COMPARED WITH ECG OF 24-NOV-2019 12:32, NO SIGNIFICANT CHANGE WAS FOUND Confirmed by MD Erick, Peña ([id number]) on 11/25/2019 8:14:17 PM Referred By: Joanne GUTIERREZ Confirmed By:Peña Suarez MD
[2019-11-25] MEDS ORDERED: ATORVASTATIN CA 20 MG TABLET (FP) PO SCH (22:00)
[2019-11-25] MEDS ORDERED: PATIENT'S OWN MEDICATION (NON-FORMULARY) (Mirabegron [Myrbetriq] 25 MG) PO SCH (22:00)
== END 2019-11-25 17:30 | disposition home or self-care (01) ==
LOC: JER 12:14 → JERBED 18:57 → JICU 21:57
PROVIDERS: ADMIT Internal Medicine; ATTEND Internal Medicine
PROC: 3E0337Z Introduction of Electrolytic and Water Balance Substance into Peripheral Vein, Percutaneous Approach (ICD-10-PCS; principal; 2019-11-24)
PROC: 3E023GC Introduction of Other Therapeutic Substance into Muscle, Percutaneous Approach (ICD-10-PCS; 2019-11-24)
DX: R00.2 Palpitations (principal); R94.31 Abnormal electrocardiogram [ECG] [EKG]; E03.9 Hypothyroidism, unspecified; I10 Essential (primary) hypertension; R06.02 Shortness of breath; R60.9 Edema, unspecified; E78.00 Pure hypercholesterolemia, unspecified; Z29.9 Encounter for prophylactic measures, unspecified; E66.01 Morbid (severe) obesity due to excess calories; Z68.31 Body mass index [BMI] 31.0-31.9, adult
CPT/HCPCS: 36415; 70450-TC; 71046-TC-FY; 80048; 80053; 82550; 82553; 82607; 83735; 83880; 84100; 84443; 84484; 85025; 85027; 85610; 93005; 93010; 93306-TC; 96372; 99285-25; G0378; U0003

== ENCOUNTER → 2021-04-07 | Day surgery (SDC) | payer OTHER | END | disposition home or self-care (01) | LOC: FMAMMOTONE 09:34 | PROVIDERS: ATTEND Family Medicine | PROC: 0HBT3ZX Excision of Right Breast, Percutaneous Approach, Diagnostic (ICD-10-PCS; principal; 2021-04-07) | DX: N64.89 Other specified disorders of breast (principal); R92.8 Other abnormal and inconclusive findings on diagnostic imaging of breast | CPT/HCPCS: 19081; 76098-TC-FY; 87899; 88305-TC; A4648 ==

== ENCOUNTER 2023-03-02 08:39 | Day surgery (SDC) | payer OTHER, MEDICARE ==
[2023-02-27 12:27] VITALS: BMI 30.8
[2023-03-02 10:28] VITALS: TEMP 97.3
[2023-03-02 11:12] VITALS: BP 114/72; PULSE 74; RESP 18
== END 2023-03-02 11:00 | disposition home or self-care (01) ==
LOC: FASU-ENDO 08:39
PROVIDERS: ATTEND Internal Medicine Gastroenterology
PROC: 0DBL8ZX Excision of Transverse Colon, Via Natural or Artificial Opening Endoscopic, Diagnostic (ICD-10-PCS; principal; 2023-03-02 10:00)
DX: Z12.11 Encounter for screening for malignant neoplasm of colon (principal); K63.5 Polyp of colon; K57.30 Diverticulosis of large intestine without perforation or abscess without bleeding; K64.1 Second degree hemorrhoids
CPT/HCPCS: 88305-TC

== ENCOUNTER 2024-02-13 10:32 | Emergency (ER) | payer OTHER ==
[2024-02-13 10:43] VITALS: TEMP 98.5; BMI 30.8
[2024-02-13 12:43] LABS: EPI CELLS >36 /uL (0-25.1); HYALINE CASTS 4 /uL (0-3.1); PH,URINE 5.5 (5.0-8.0); URINE APPEARANCE CLEAR; URINE BACTERIA 315 /uL (0-1359); URINE BILIRUBIN NEGATIVE (NEGATIVE); URINE COLOR YELLOW; URINE GLUCOSE (UA) NEGATIVE (NEGATIVE); URINE KETONE TRACE (NEGATIVE); URINE LEUK ESTERASE NEGATIVE (NEGATIVE); URINE NITRITE NEGATIVE (NEGATIVE); URINE PROTEIN TRACE (NEGATIVE); URINE RBC 52 /uL (0-23.9); URINE UROBILINOGEN 0.2 mg/dL (0.2-1.0); URINE WBC 34 /uL (0-25.8)
[2024-02-13] MEDS: LACTATED RINGERS SOLUTION 1,000 ML/1,000 ML INFUS.BAG IV STA (13:01)
[2024-02-13 13:07] LABS: BASO % 1.6 % (0-2.0); EOS % 1.8 % (0-4.5); HEMATOCRIT 36.2 % (32.4-45.2); HEMOGLOBIN 12.2 GM/dL (10.7-15.3); LYMPH % 31.3 % (8-40); MCH 29.5 pg (25.7-33.7); MCHC 33.8 g/dl (32.0-36.0); MEAN CELL VOLUME 87.5 fl (80-96); MEAN PLT VOLUME 7.8 fl (7.5-11.1); MONO % 8.6 % (3.8-10.2); NEUT % 56.7 % (42.8-82.8); PLATELET COUNT 200 10^3/uL (134-434); RBC 4.14 M/mm3 (3.60-5.2); RDW 14.3 % (11.6-15.6); WHITE BLOOD COUNT 3.2 K/mm3 (4.0-10.0)
[2024-02-13 13:32] LABS: ALBUMIN 3.6 g/dl (3.4-5.0); BLOOD UREA NITROGEN 12.2 mg/dL (7-18)
[2024-02-13 13:33] LABS: CALCIUM 9.2 mg/dL (8.5-10.1)
[2024-02-13 13:34] LABS: MAGNESIUM 2.2 mg/dL (1.8-2.4)
[2024-02-13 13:38] LABS: BILIRUBIN,TOTAL 0.4 mg/dL (0.2-1); TOT PROT 7.5 g/dl (6.4-8.2)
[2024-02-13 15:35] VITALS: BP 124/82; PULSE 86; RESP 18
== END 2024-02-13 16:00 | disposition home or self-care (01) ==
LOC: JER 10:32
DX: R19.7 Diarrhea, unspecified (principal); R11.2 Nausea with vomiting, unspecified; R10.32 Left lower quadrant pain
CPT/HCPCS: 36415; 74177-TC; 80053; 81003; 83735; 85025; 93005; 93010; 99285-25; Q9967